=== PATIENT | female | born 1950 | race Caucasian/White ===

== ENCOUNTER → 2018-05-26 | Outpatient (CLI) | payer OTHER ==
[~2018-05-26] MED LIST: ACET500; ASCO500 PO; FISH OIL 1,0001 EAC1 PO; TRAM50 PO; VITAMIN D-32000 UNIT PO
[2018-05-26 13:59] LABS: Protein, Urine Random <5.0 mg/dL (0.0-11.9)
== END | disposition home or self-care (01) ==
LOC: LAB 12:47 → LAB SHORT 12:47
PROVIDERS: Internal Medicine
DX: N18.3 Chronic kidney disease, stage 3 (moderate) (principal)
CPT/HCPCS: 82570; 84156

== ENCOUNTER 2019-03-23 12:46 | Day surgery (SDC) | payer OTHER ==
[~2019-03-23] VITALS: Ht 165.1 cm; Wt 93.8 kg
[~2019-03-23 12:46] MED LIST changes: +ACET500 PO; +Flonase 0.05% N16 GM; +Glucosamine Ch1 EAC4 PO; +POTASSIUM GLUCO90 MG PO; +[UNRECOGNIZED DRUG - OTHER] PO
--- NOTE | 2019-03-23 13:28 | NUR ---
Ambulatory in Day Surgery History, Chart, Medications and Allergies reviewed before start of procedure.Lungs clear T/O to Auscultation. Patient confirms NPO status and agrees with scheduled surgery. Patient reports completing Chlorhexadine shower X2 prior to admission to hospital.Surgical site prepped with 2% Chlorhexidine cloth wipe.
--- NOTE | 2019-03-23 17:59 | NUR ---
PT ARRIVED TO THE ROOM AT APPROXIMATELY 1712. PT ALERT AND ORIENTED. SHE DENIES PAIN. SHE IS ABLE TO MOVE HER BLE BUT REPORTS DECREASED SENSATION R/T SPINAL ANESTHESIA. VSS. WILL CONTINUE TO MONITOR.
--- NOTE | 2019-03-23 19:03 | NUR ---
TORADOL PT EDUCATED THAT TORADOL CAN AFFECT THE KIDNEYS, CREATININE NORMAL AND GFR 59. PT REPORTED THAT SHE SPOKE WITH DR. MANE PRIOR TO SURGERY AND SHE SAID OK FOR NSAIDS. TORADOL GIVEN. NOC RN ADRIENNE NOTIFIED OF CKD.
--- NOTE | 2019-03-23 19:23 | NUR ---
SHIFT SUMMARY PT HAS DENIED PAIN SINCE ARRIVING TO THE UNIT. PT TOLERATING PO, REPORTS MILD NAUSEA. VSS. REPORT GIVEN TO ADRIENNE BUNCH.
[2019-03-24 04:11] LABS: BASOPHILS ABSOLUTE AUTO 0.04 K/mm3 (0.00-0.23); BASOPHILS PERCENT AUTO 0 % (0-2); EOSINOPHILS ABSOLUTE AUTO 0.04 K/mm3 (0.00-0.68); EOSINOPHILS PERCENT AUTO 0 % (0-6); Hemoglobin 12.3 g/dL (11.5-16.0); IMMATURE GRAN ABSOLUTE AUTO 0.04 K/mm3 (0.00-0.10); IMMATURE GRAN PERCENT AUTO 0 % (0-1); LYMPHOCYTES ABSOLUTE AUTO 2.46 K/mm3 (0.84-5.20); LYMPHOCYTES PERCENT AUTO 19 % (21-46); MONOCYTES ABSOLUTE AUTO 0.96 K/mm3 (0.16-1.47); MONOCYTES PERCENT AUTO 7 % (4-13); Mean Corpuscular HGB 30.8 pg (26.0-34.0); Mean Corpuscular HGB Conc 32.4 g/dL (31.5-36.5); Mean Corpuscular Volume 95 fL (80-100); Mean Platelet Volume 10.1 fL (9.1-12.4); NEUTROPHILS ABSOLUTE AUTO 9.48 K/mm3 (1.96-9.15); NEUTROPHILS PERCENT AUTO 73 % (41-73); Platelet Count 189 K/mm3 (150-400); RDW Coefficient Variation 11.9 % (11.7-14.2); RDW Standard Deviation 41.4 fL (35.1-46.3); Red Blood Cell Count 3.99 M/mm3 (3.80-5.20); White Blood Cell Count 13.02 K/mm3 (4.00-11.30)
[2019-03-24 04:40] LABS: Anion Gap 8 mmol/L (6-16); Blood Urea Nitrogen 26 mg/dL (8-24); Bun/Creatinine Ratio 26.6 (12.0-20.0); CO2, Blood 23 mmol/L (21-32); Calcium, Blood 8.6 mg/dL (8.5-10.1); Chloride, Blood 107 mmol/L (98-108); Creatinine, Blood 0.98 mg/dL (0.40-1.00); Glomerular Filtration Rate >60 (60-); Glucose, Blood 115 mg/dL (70-99); Potassium, Blood 4.2 mmol/L (3.5-5.5); Sodium, Blood 138 mmol/L (136-145)
--- NOTE | 2019-03-24 05:30 | NUR ---
[employer]PER[employer] INFOMRED NURSING THAT PT'S PIV WAS INFILTRATED, STATING THAT PT WAS C/O RIGHT ARM PAIN AND THAT IT WAS SWOLLEN. NURSING ATTEMPTED TO FLUSH PIV, PT VERBALIZED PAIN. AREA WAS COOL TO TOUCH. AMGIOCATH REMOVED WITH TIP INTACT. AREA CLEANSED AND GUAZE WITH TAPE WAS PLACED ON SITE. PT'S ARE WAS ELEVATED ON PILLOW AND WRAPPED IN A WARMD BLANKET FOR COMFORT. ATEMPT X2 TO PLACE PIV BY THIS NURSE WERE UNSUCCESSFUL. 22G PLACED TO LEFT HAND BY ALIVIA DENNIS. FLUSHES WELL AND GOOD BLOOD RETURN NOTED. DENIES PAIN OR DISCOMFORT AT SITE NOW. SAFETY MEAURES IN PLACE. WILL CONTINUE TO MONITOR.
--- NOTE | 2019-03-24 05:37 | NUR ---
SHIFT SUMMARY LYING IN SEMI FOWLERS. REPOSITIONS SELF IN BED. ATTENDS IN PLACE FOR INCONTINENCE. PRN PAIN MEDS GIVEN WHEN OFFERED. DENIES FURTHER NEEDS AT THIS TIME. SAFETY MEASURES IN PLACE. WILL GIVE HAND OFF TO ONCOMING SHIFT USING SBAR.
[2019-03-24] MEDS ORDERED: Aspir 8181 MG PO (11:45)
[2019-03-24] MEDS ORDERED: Percocet 5-3251 EACH PO (11:46)
[2019-03-24] MEDS ORDERED: CELE100 PO (11:46)
--- NOTE | 2019-03-24 16:00 | NUR ---
PATIENT D/C'D HOME WITH SPOUSE AND DAUGHTER AT THIS TIME; ALL STATE UNDERSTANDING OF MEDS, WOUND CARE, ACTIVITY, OP PT, F/U APPT, ETC. PATIENT TOLERATING PO, STATES PAIN UNDER CONTROL WITH PO MEDS. VOIDING. NO ACUTE CHANGES OR C/O AT THIS TIME.
--- NOTE | 2019-03-27 12:29 | NUR ---
03/27/19 1229 Pap,Marty D CORRECTION EXPIRATION DATE
== END 2019-03-24 16:10 | disposition home or self-care (01) ==
LOC: ORSCMMR 12:46 → ORD 13:00 → ORSCMMR 13:00 → SURS 17:25 → ORSCMMR 03-24 16:10
PROVIDERS: Orthopaedic Surgery
PROC: 0SRC0JA Replacement of Right Knee Joint with Synthetic Substitute, Uncemented, Open Approach (ICD-10-PCS; principal; 2019-03-23 14:00)
DX: M17.11 Unilateral primary osteoarthritis, right knee (principal); N18.9 Chronic kidney disease, unspecified; Z79.899 Other long term (current) drug therapy; E66.9 Obesity, unspecified; Z68.34 Body mass index [BMI] 34.0-34.9, adult
CPT/HCPCS: 36415; 73560-RT; 80048; 85025; 86850; 86900; 86901; 88300; 97110; 97116; 97161; 97530; C1776; J0171; J0690; J0735; J1885; J2250; J2405; J2704; J2795; J3010; J7120

== ENCOUNTER → 2019-04-07 | Outpatient (CLI) | payer OTHER ==
[~2019-04-07] MED LIST changes: +Aspir 8181 MG PO; +CELE100 PO; +Percocet 5-3251 EACH PO
== END | disposition home or self-care (01) ==
LOC: LAB 16:29 → LAB SHORT 16:29
DX: R10.2 Pelvic and perineal pain (principal)
CPT/HCPCS: 87086

== ENCOUNTER 2020-06-03 08:23 | Day surgery (SDC) | payer OTHER ==
[~2020-06-03] VITALS: Ht 165.1 cm; Wt 90.6 kg
[~2020-06-03 08:23] MED LIST changes: +OMEGA-3 KRILL1 EAC3 PO; +PYRIDOXINE HCL PO; +Vitamin D2000 UNIT PO
--- NOTE | 2020-06-03 10:24 | NUR ---
06/03/20 Allyssa Villalobos PATIENT UPDATED REGARDING DELAY. PREVIOUS CASE IS RUNNING LONG. PATIENT REQUESTING A CALL TO HER TO UPDATE HIM. RN CALLED AND UPDATED. NO C/O AT THIS TIME. CALL LIGHT WITHIN REACH.
== END 2020-06-03 11:50 | disposition home or self-care (01) ==
LOC: ORSCSDS 08:23
PROVIDERS: Internal Medicine Gastroenterology
PROC: 0DJD8ZZ Inspection of Lower Intestinal Tract, Via Natural or Artificial Opening Endoscopic (ICD-10-PCS; principal; 2020-06-03 10:00)
DX: K92.1 Melena (principal); K57.30 Diverticulosis of large intestine without perforation or abscess without bleeding; K64.8 Other hemorrhoids; Z85.038 Personal history of other malignant neoplasm of large intestine; N18.9 Chronic kidney disease, unspecified; E66.9 Obesity, unspecified; Z68.33 Body mass index [BMI] 33.0-33.9, adult; Z79.899 Other long term (current) drug therapy
CPT/HCPCS: J2704; J7120

== ENCOUNTER → 2024-02-08 | Outpatient (CLI) | payer OTHER ==
[2024-02-08 12:16] LABS: BASOPHILS ABSOLUTE AUTO 0.06 K/mm3 (0.00-0.23); BASOPHILS PERCENT AUTO 1 % (0-2); EOSINOPHILS ABSOLUTE AUTO 0.15 K/mm3 (0.00-0.68); EOSINOPHILS PERCENT AUTO 2 % (0-6); Hematocrit 40.5 % (33.0-51.0); Hemoglobin 13.6 g/dL (11.5-16.0); IMMATURE GRAN ABSOLUTE AUTO 0.03 K/mm3 (0.00-0.10); IMMATURE GRAN PERCENT AUTO 0 % (0-1); LYMPHOCYTES ABSOLUTE AUTO 3.62 K/mm3 (0.84-5.20); LYMPHOCYTES PERCENT AUTO 46 % (21-46); MONOCYTES ABSOLUTE AUTO 0.63 K/mm3 (0.16-1.47); MONOCYTES PERCENT AUTO 8 % (4-13); Mean Corpuscular HGB 30.1 pg (26.0-34.0); Mean Corpuscular HGB Conc 33.6 g/dL (31.5-36.5); Mean Corpuscular Volume 90 fL (80-100); Mean Platelet Volume 9.5 fL (9.1-12.4); NEUTROPHILS ABSOLUTE AUTO 3.46 K/mm3 (1.96-9.15); NEUTROPHILS PERCENT AUTO 44 % (41-73); Platelet Count 221 K/mm3 (150-400); RDW Coefficient Variation 12.9 % (11.7-14.2); RDW Standard Deviation 42.1 fL (35.1-46.3); Red Blood Cell Count 4.52 M/mm3 (3.80-5.20); White Blood Cell Count 7.95 K/mm3 (4.00-11.30)
[2024-02-08 12:23] LABS: Albumin, Blood 3.5 g/dL (3.4-5.0); Bilirubin, Total 0.4 mg/dL (0.1-1.0); Calcium, Blood 9.3 mg/dL (8.5-10.1); Creatinine, Blood 1.11 mg/dL (0.40-1.00); Globulin, Blood 3.5 g/dL (2.2-4.0); Potassium, Blood 4.3 mmol/L (3.5-5.5)
== END | disposition home or self-care (01) ==
LOC: LAB 12:08 → LAB SHORT 12:08
PROVIDERS: Family Medicine
DX: I10 Essential (primary) hypertension (principal); R06.00 Dyspnea, unspecified; R22.43 Localized swelling, mass and lump, lower limb, bilateral
CPT/HCPCS: 80053; 83880; 85025

== ENCOUNTER 2024-02-21 20:05 | Emergency (ER) | payer OTHER ==
[~2024-02-21] VITALS: Ht 165.1 cm; Wt 99.8 kg
[2024-02-21 20:38] VITALS: BP 128/110
[2024-02-21 21:18] LABS: BASOPHILS ABSOLUTE AUTO 0.06 K/mm3 (0.00-0.23); BASOPHILS PERCENT AUTO 1 % (0-2); EOSINOPHILS ABSOLUTE AUTO 0.23 K/mm3 (0.00-0.68); EOSINOPHILS PERCENT AUTO 2 % (0-6); Hematocrit 41.8 % (33.0-51.0); Hemoglobin 14.1 g/dL (11.5-16.0); IMMATURE GRAN ABSOLUTE AUTO 0.02 K/mm3 (0.00-0.10); IMMATURE GRAN PERCENT AUTO 0 % (0-1); LYMPHOCYTES ABSOLUTE AUTO 4.13 K/mm3 (0.84-5.20); LYMPHOCYTES PERCENT AUTO 42 % (21-46); MONOCYTES ABSOLUTE AUTO 0.77 K/mm3 (0.16-1.47); MONOCYTES PERCENT AUTO 8 % (4-13); Mean Corpuscular HGB 30.4 pg (26.0-34.0); Mean Corpuscular HGB Conc 33.7 g/dL (31.5-36.5); Mean Corpuscular Volume 90 fL (80-100); Mean Platelet Volume 9.1 fL (9.1-12.4); NEUTROPHILS ABSOLUTE AUTO 4.54 K/mm3 (1.96-9.15); NEUTROPHILS PERCENT AUTO 47 % (41-73); Platelet Count 242 K/mm3 (150-400); RDW Coefficient Variation 12.7 % (11.7-14.2); RDW Standard Deviation 41.9 fL (35.1-46.3); Red Blood Cell Count 4.64 M/mm3 (3.80-5.20); White Blood Cell Count 9.75 K/mm3 (4.00-11.30)
[2024-02-21 21:34] LABS: Albumin, Blood 3.9 g/dL (3.4-5.0); Albumin/Globulin Ratio 1.1 (0.8-1.8); Bilirubin, Total 0.3 mg/dL (0.1-1.0); Bun/Creatinine Ratio 20.3 (12.0-20.0); Calcium, Blood 10.1 mg/dL (8.5-10.1); Creatinine, Blood 1.18 mg/dL (0.40-1.00); Globulin, Blood 3.4 g/dL (2.2-4.0); Potassium, Blood 4.1 mmol/L (3.5-5.5); Total Protein, Blood 7.3 g/dL (6.4-8.2)
== END 2024-02-22 01:35 | disposition home or self-care (01) ==
LOC: ER 20:05
PROVIDERS: Student in an Organized Health Care Education/Training Program
DX: M48.02 Spinal stenosis, cervical region (principal); M54.12 Radiculopathy, cervical region; E86.0 Dehydration; Z88.5 Allergy status to narcotic agent; Z88.3 Allergy status to other anti-infective agents; Z88.8 Allergy status to other drugs, medicaments and biological substances; Z79.899 Other long term (current) drug therapy
CPT/HCPCS: 71046; 80053; 83880; 84484; 85025

== ENCOUNTER 2024-10-10 06:49 | Day surgery (SDC) | payer OTHER ==
[~2024-10-10] VITALS: Ht 162.6 cm; Wt 94.0 kg
[2024-10-10] VITALS (15 sets, daily range): BP systolic 95–157; BP diastolic 55–81
[~2024-10-10 06:49] MED LIST changes: +Acetaminophen 500 MG Tab PO SCH; +CHOLESTEROL MED PO; +CeFAZolin Sodium 2,000 MG in NS 100 ML IV SCH; +Chlorhexidine Mouth Care 15 ML UDC MT SCH; +Lactated Ringer's 1,000 ML IV SCH; +OLME5TAB PO; +OxyCODONE HCL 10 MG TABCR PO SCH; +Ropivacaine 0.5% HCl/Pf 123.125 MG,EPINEPHrine HCL 0.25 MG,Ketorolac Tromethamine 15 MG... INFIL SCH; +Tranexamic Acid 100 ML IV SCH
[2024-10-10] MEDS ORDERED: CeFAZolin Sodium 2,000 MG VIAL ONE (06:59)
[2024-10-10] MEDS ORDERED: Midazolam HCl 1MG / ML 2ML Vial ONE (07:59)
[2024-10-10] MEDS ORDERED: FentaNYL Citrate 50 MCG/ML 2 ML Injection ONE (07:59)
[2024-10-10] MEDS ORDERED: propofoL 50 ML IV ONE (08:02)
--- NOTE | 2024-10-10 08:13 | NUR ---
History, Chart, Medications and Allergies reviewed before start of procedure.Lungs clear T/O to Auscultation. Pre-Op teaching done. Pt verbalizes understanding. Patient confirms NPO status and agrees with scheduled surgery. Patient reports completing Chlorhexadine shower X2 prior to admission to hospital.
--- NOTE | 2024-10-10 08:21 | NUR ---
PATIENT GLASSES IN WITH PATIENT BELONGINGS
[2024-10-10] MEDS ORDERED: Lidocaine HCl 2% Jelly 120MG/6ML SYR (20MG PER ML) ONE (09:02)
[2024-10-10] MEDS ORDERED: ePHEDrine Sulfate 50 MG/ML 1ML Injection ONE (09:19)
[2024-10-10] MEDS ORDERED: propofoL 20 ML IV ONE (10:08)
[2024-10-10] MEDS ORDERED: Dexamethasone Sod Phos 10 MG/ML 1ML VIAL ONE (10:19)
[2024-10-10] MEDS ORDERED: Metoclopramide HCl 5MG / ML 2ML Vial IV PRN (11:45)
[2024-10-10] MEDS ORDERED: CeFAZolin Sodium 2,000 MG in NS 100 ML IV SCH ×2 (11:45→16:00)
[2024-10-10] MEDS ORDERED: HYDROmorphone HCl/Pf 1MG SYR IV PRN (11:45)
[2024-10-10] MEDS ORDERED: Ondansetron HCl 2 MG / ML 2ML Vial IV PRN (11:45)
[2024-10-10] MEDS ORDERED: Promethazine HCl 25 MG Tab PO PRN (11:45)
[2024-10-10] MEDS ORDERED: Lactated Ringer's 1,000 ML IV SCH (11:45)
[2024-10-10] MEDS ORDERED: OxyCODONE HCL 5 MG TAB PO PRN ×2 (11:45)
[2024-10-10] MEDS ORDERED: DiphenhydrAMINE HCL 25 MG Cap PO PRN (11:45)
--- NOTE | 2024-10-10 11:46 | NUR ---
ARRIVAL PT ARRIVED TO UNIT FROM PACU ON BED S/P LTKA PT REPORTS FULL SENSATION IN LEFT LEG AND IS ABLE TO WIGGLE TOES. STRONG PEDAL PULSE. TOES WARM AND CAP REFILL <3. POLAR AMOR AND TUCKER HOSE IN PLACE. PT REPORTS SLIGHT DISCOMFORT AND PAIN STARTING TO INCREASE. EATING CRACKERS AND JELLO AT THIS TIME. WILL MEDICATE PER EMAR ONCE ABLE TO EAT. MISAEL WRAP AND AQUACEL IN PLACE TO L KNEE, CDI CURRENTLY. FAMILY AT BEDSIDE. CALL LIGHT PROVIDED. DENIES FURTHER NEEDS AT THIS TIME.
[2024-10-10] MEDS ORDERED: Ketorolac Tromethamine 15mg Vial IV SCH (12:00)
--- NOTE | 2024-10-10 15:02 | NUR ---
DISCHARGE PT ABLE TO AMBULATE WELL WITH THERAPY AND IN ROOM, VOIDED PRIOR TO DISCHARGE. PAIN IMPROVED SIGNIFICANTLY AFTER AMBULATION. AQUACEL REMAINS CDI. EXTRA DRESSINGS SENT WITH PATIENT. ALL INSTRUCTIONS GONE OVER WITH PATIENT AND SPOUSE. NO FURTHER QUESTIONS. ALL BELONGINGS WITH PATIENT.
[2024-10-10] MEDS ORDERED: Acetaminophen 500 MG Tab PO SCH (16:00)
[2024-10-10] MEDS ORDERED: Apixaban 5 MG Tab PO SCH (21:00)
[2024-10-10] MEDS ORDERED: Docusate Sodium 100 MG Cap PO SCH (21:00)
== END 2024-10-10 14:55 | disposition home or self-care (01) ==
LOC: ORSCMMR 06:49 → ORD 08:15 → ORSCMMR 08:15 → SURS 11:33 → ORSCMMR 11:33 → SURS 14:55 → ORSCMMR 14:55
PROVIDERS: Orthopaedic Surgery
PROC: 0SRD0JA Replacement of Left Knee Joint with Synthetic Substitute, Uncemented, Open Approach (ICD-10-PCS; principal; 2024-10-10 08:15)
DX: M17.12 Unilateral primary osteoarthritis, left knee (principal); E78.5 Hyperlipidemia, unspecified; N18.9 Chronic kidney disease, unspecified; Z79.899 Other long term (current) drug therapy; Z96.651 Presence of right artificial knee joint; Z96.641 Presence of right artificial hip joint
CPT/HCPCS: 73560-LT; 97110; 97116; 97162; A9270; C1713; C1776; J0171; J0690; J0735; J1100; J1885; J2250; J2704; J2795; J3010; J7120

== ENCOUNTER 2025-02-15 09:19 | Day surgery (SDC) | payer OTHER ==
[~2025-02-15] VITALS: Ht 162.6 cm; Wt 94.9 kg
[~2025-02-15 09:19] MED LIST changes: -Acetaminophen 500 MG Tab PO SCH; +Balanced Salt Epinephrine Irrigation Solution 500 mL IR SCH; -CeFAZolin Sodium 2,000 MG in NS 100 ML IV SCH; -Chlorhexidine Mouth Care 15 ML UDC MT SCH; +ELIQUIS2.5 MG PO; -Lactated Ringer's 1,000 ML IV SCH; +Moxifloxacin HCL 0.5 MG/0.1 ML 0.4MLSYR RIGHTEYE SCH; +ONDA8 PO; +Ondansetron 4 MG SoluTab MM PRN; -OxyCODONE HCL 10 MG TABCR PO SCH; +PHENYLEPHRINE\\TROPICAMIDE\\TETRACAINE OPHTHALMIC DILATING SOLN RIGHTEYE PRN; +Povidone-Iodine 450 DROP/30 ML Solution ONE; +Povidone-Iodine 450 DROP/30 ML Solution RIGHTEYE SCH; -Ropivacaine 0.5% HCl/Pf 123.125 MG,EPINEPHrine HCL 0.25 MG,Ketorolac Tromethamine 15 MG... INFIL SCH; +Tetracaine HCl/Pf 0.5% Opth Soln 4 ml ONE; -Tranexamic Acid 100 ML IV SCH; +Triamcinolone Inj Susp 40 MG / ML 1ML Vial INJ SCH; +Triamcinolone Inj Susp 40 MG / ML 1ML Vial ONE
[2025-02-15] MEDS ORDERED: ROSUVASTATIN CAL5 MG (09:45)
--- NOTE | 2025-02-15 09:53 | NUR ---
02/15/25 0953 Yissel Portillo PT STATES ANXIETY LEVEL IS 0/10 IN PREOP PT IS ON CONTINUOUS PULSE OX MONITORING PT HAS CALL LIGHT IN HAND
[2025-02-15] MEDS ORDERED: Tetracaine HCl 0.5% Opth Soln 15 ml RIGHTEYE ONE (10:25)
--- NOTE | 2025-02-15 10:29 | NUR ---
02/15/25 1029 Amadou Hayes N 157/96 99% ON 10L BLOW BY O2 [id number]
[2025-02-15 10:46] VITALS: BP 168/89
== END 2025-02-15 11:03 | disposition home or self-care (01) ==
LOC: ORSCSDS 09:19
PROVIDERS: Ophthalmology
PROC: 08RJ3JZ Replacement of Right Lens with Synthetic Substitute, Percutaneous Approach (ICD-10-PCS; principal; 2025-02-15 11:00)
DX: H25.811 Combined forms of age-related cataract, right eye (principal); N18.9 Chronic kidney disease, unspecified
CPT/HCPCS: A9270; J3301; V2632

== ENCOUNTER 2025-02-22 09:36 | Day surgery (SDC) | payer OTHER ==
[~2025-02-22] VITALS: Ht 162.6 cm; Wt 95.9 kg
[~2025-02-22 09:36] MED LIST changes: +Moxifloxacin HCL 0.5 MG/0.1 ML 0.4MLSYR LEFTEYE SCH; -Moxifloxacin HCL 0.5 MG/0.1 ML 0.4MLSYR RIGHTEYE SCH; +PHENYLEPHRINE\\TROPICAMIDE\\TETRACAINE OPHTHALMIC DILATING SOLN LEFTEYE PRN; -PHENYLEPHRINE\\TROPICAMIDE\\TETRACAINE OPHTHALMIC DILATING SOLN RIGHTEYE PRN; +Povidone-Iodine 450 DROP/30 ML Solution LEFTEYE SCH; -Povidone-Iodine 450 DROP/30 ML Solution RIGHTEYE SCH; +ROSUVASTATIN CAL5 MG
--- NOTE | 2025-02-22 10:18 | NUR ---
02/22/25 [place]8 Sindhu Gupta INITIAL ANXIETY 0/10 PER PATIENT REPORT
--- NOTE | 2025-02-22 11:21 | NUR ---
02/22/25 1121 Yissel Berger HR:80 BP:174/99 SP02:100% ON BLOW BY O2
[2025-02-22 11:31] VITALS: BP 178/99
--- NOTE | 2025-02-22 11:35 | NUR ---
02/22/25 1135 Liv Gao INSTRUCTED TO PULL CAR AROUND TO AUTOMOBILE RADIATOR MECHANIC AREA
== END 2025-02-22 11:49 | disposition short-term general hospital (02) ==
LOC: ORSCSDS 09:36
PROVIDERS: Ophthalmology
PROC: 08RK3JZ Replacement of Left Lens with Synthetic Substitute, Percutaneous Approach (ICD-10-PCS; principal; 2025-02-22 11:00)
DX: H25.812 Combined forms of age-related cataract, left eye (principal); Z96.1 Presence of intraocular lens; N18.9 Chronic kidney disease, unspecified
CPT/HCPCS: A9270; J3301; V2632